=== PATIENT | female | born 1955 | race Caucasian/White ===

== ENCOUNTER → 2018-05-27 | Outpatient (CLI) | payer OTHER ==
[~2018-05-27] MED LIST: ALEVE220 MG PO; CELEXA20 MG PO; FOSAMAX 70 MG T70 MG PO; ROBAXIN 750 MG750 M1 PO; TOPROL XL25 MG PO
[2018-05-27 10:10] LABS: ALBUMIN 4.2 g/dL (3.4-5.0); ALKALINE PHOSPHATASE 61 U/L (46-116); CHOLESTEROL 218 mg/dL (<200); DIRECT BILIRUBIN 0.1 mg/dL (<0.1-0.3); HDL CHOLESTEROL 88 mg/dL (>40); LDL CHOLESTEROL 85 mg/dL (<100); SGOT 27 U/L (15-37); SGPT 20 U/L (30-65); TC:HDL 2.5 Ratio (Not establshd); TOTAL BILIRUBIN 0.5 mg/dL (<0.1-1.0); TOTAL PROTEIN 7.6 g/dL (6.4-8.2); TRIGLYCERIDE 226 mg/dL (<150); VLDL 45 mg/dL (<40)
[2018-05-27 10:17] LABS: SERUM ASSESSMENT Clear
== END ==
LOC: M.LAB 09:29
DX: E78.5 Hyperlipidemia, unspecified (principal); I10 Essential (primary) hypertension; M81.0 Age-related osteoporosis without current pathological fracture

== ENCOUNTER → 2019-03-11 | Outpatient (CLI) | payer OTHER | LOC: M.LAB 09:15 | DX: R19.7 Diarrhea, unspecified (principal) ==

== ENCOUNTER → 2019-03-12 | Outpatient (CLI) | payer OTHER | LOC: M.LAB 13:27 | DX: R19.7 Diarrhea, unspecified (principal) ==

== ENCOUNTER 2020-08-21 11:13 | Emergency (ER) | payer OTHER ==
[~2020-08-21] VITALS: Ht 147.3 cm; Wt 40.8 kg
[2020-08-21] MEDS ORDERED: LIPITOR 10 MG10 M1 PO (11:24)
[2020-08-21] MEDS ORDERED: PRINIVIL10 MG PO (11:24)
[2020-08-21] MEDS ORDERED: TOPAMAX100 MG PO (11:24)
[2020-08-21] MEDS ORDERED: MELATONIN5 MG SUBLING (11:25)
[2020-08-21 11:59] LABS: URINE BILIRUBIN NEGATIVE (Negative); URINE BLOOD NEGATIVE (Negative); URINE CLARITY CLEAR; URINE COLOR YELLOW; URINE GLUCOSE-RANDOM NEGATIVE (Negative); URINE KETONES TRACE (Negative); URINE LEUKOCYTES-REFLEX NEGATIVE (Negative); URINE NITRITE-REFLEX NEGATIVE (Negative); URINE PROTEIN NEGATIVE (Negative); URINE UROBILINOGEN 0.2 E.U./dl (0.2-1.0)
[2020-08-21 14:07] LABS: ABSOLUTE BASOPHILS 0.1 thou/uL (0.0-0.2); ABSOLUTE EOSINOPHILS 0.2 thou/uL (0.0-0.7); ABSOLUTE LYMPHOCYTES 2.5 thou/uL (0.8-5.3); ABSOLUTE NEUTROPHILS 6.1 thou/uL (1.6-8.1); BASOPHILS 0.8 %; EOSINOPHILS 2.1 %; HEMATOCRIT 42.6 % (37.0-47.0); HEMOGLOBIN 14.5 gm/dL (12.0-15.0); LYMPHOCYTES 25.1 %; MCH 35.6 pg (26.0-34.0); MCV 104.7 fL (80.0-100.0); MONOCYTES 9.9 %; MPV 7.2 fl. (7.2-11.1); NUCLEATED RBCS 0 /100WBC; PLATELET COUNT* 301 thou/uL (150-400); POLYS 62.1 %; RBC 4.07 mil/uL (4.20-5.00); RDW-CV 14.4 % (10.5-14.5); WBC 9.8 thou/uL (4.0-11.0)
[2020-08-21 14:13] LABS: CALCIUM 8.9 mg/dL (8.5-10.1); CREATININE 1.2 mg/dL (0.6-1.3)
[2020-08-21 14:17] LABS: ALBUMIN 4.4 g/dL (3.4-5.0); TOTAL BILIRUBIN 0.4 mg/dL (<0.1-1.0); TOTAL PROTEIN 8.2 g/dL (6.4-8.2)
[2020-08-21] MEDS ORDERED: ONDANSETRON ODT4 MG PO (16:27)
[2020-08-21] MEDS ORDERED: NORCO 5-325 TA1 EAC2 PO (16:27)
[2020-08-21 16:38] VITALS: BP 137/82
--- NOTE | 2020-08-23 16:32 | EKG ---
[place] [address] ELECTROCARDIOGRAM REPORT Name: RENE RUFF Room: [facility]#: [id number] Admission: 08/21/20 Attend Phys: Discharge: 08/21/20 Date of : 53 Date of Service: 08/21/20 1414 Report #: [id number] THIS REPORT FOR: //name// [facility] ED Test Date: 2020-08-21 Test Time: 14:14:52 Pat Name: RENE RUFF Department: Room: Gender: F Plan Coordinator: [facility] [place] : 1955 Requested By: Raymundo Maradiaga Order Number: [id number] MD: Dom Gates Measurements Intervals [place] Rate: 74 P: -4 [place]: 141 QRS: 28 QRSD: 77 T: 16 QT: 402 QTc: 446 Interpretive Statements Sinus rhythm Abnormal R-wave progression, early transition Borderline T abnormalities, anterior leads No previous ECG available for comparison Electronically Signed On 08-23-2020 16:32:20 TECHNICAL DATA ANALYST by Dom Gates [email or web address] <ELECTRONICALLY SIGNED> By: Dom Gates MD, [facility] 08/23/20 1632 1414 141 Dom Gates MD, [facility] /EPI
== END 2020-08-21 16:39 | disposition home or self-care (01) ==
LOC: M.ERS 11:13
PROVIDERS: Family Medicine; Physician Assistant
DX: R10.31 Right lower quadrant pain (principal); I10 Essential (primary) hypertension; F17.210 Nicotine dependence, cigarettes, uncomplicated; Z88.8 Allergy status to other drugs, medicaments and biological substances

== ENCOUNTER → 2020-11-06 | Emergency (ER) | payer OTHER ==
[~2020-11-06] VITALS: Ht 147.3 cm; Wt 39.9 kg
[~2020-11-06] MED LIST changes: +LIPITOR 10 MG10 M1 PO; +MELATONIN5 MG SUBLING; +NORCO 5-325 TA1 EAC2 PO; +ONDANSETRON ODT4 MG PO; +PRINIVIL10 MG PO; +TOPAMAX100 MG PO
[2020-11-06 14:20] VITALS: BP 125/65
== END ==
LOC: M.ERS 13:30
DX: S61.211A Laceration without foreign body of left index finger without damage to nail, initial encounter (principal); R20.2 Paresthesia of skin; I10 Essential (primary) hypertension; Z79.899 Other long term (current) drug therapy; Z88.8 Allergy status to other drugs, medicaments and biological substances; W26.0XXA Contact with knife, initial encounter; Y93.89 Activity, other specified; Y92.89 Other specified places as the place of occurrence of the external cause; Y99.8 Other external cause status

== ENCOUNTER 2021-03-02 20:17 | Inpatient (IN) | payer OTHER ==
[~2021-03-02] VITALS: Ht 147.3 cm; Wt 38.6 kg
[2021-03-02 20:24] VITALS: BP 178/80
[2021-03-02] MEDS ORDERED: VITAMIN D31 ML (20:30)
[2021-03-02] MEDS ORDERED: FIBER0.4 GM PO (20:30)
[2021-03-02 20:39] LABS: ABSOLUTE BASOPHILS 0.1 thou/uL (0.0-0.2); ABSOLUTE EOSINOPHILS 0.3 thou/uL (0.0-0.7); ABSOLUTE LYMPHOCYTES 3.8 thou/uL (0.8-5.3); ABSOLUTE MONOCYTES 0.9 thou/uL (0.0-1.2); ABSOLUTE NEUTROPHILS 5.5 thou/uL (1.6-8.1); BASOPHILS 1.2 %; EOSINOPHILS 3.1 %; HEMATOCRIT 41.9 % (37.0-47.0); HEMOGLOBIN 14.4 gm/dL (12.0-15.0); LYMPHOCYTES 35.6 %; MCH 36.2 pg (26.0-34.0); MCHC 34.3 g/dL (28.0-37.0); MCV 105.4 fL (80.0-100.0); MONOCYTES 8.3 %; MPV 7.6 fl. (7.2-11.1); NUCLEATED RBCS 0 /100WBC; PLATELET COUNT* 271 thou/uL (150-400); POLYS 51.8 %; RBC 3.97 mil/uL (4.20-5.00); RDW-CV 13.3 % (10.5-14.5); WBC 10.7 thou/uL (4.0-11.0)
[2021-03-02 20:49] LABS: CALCIUM 9.4 mg/dL (8.5-10.1); POTASSIUM 3.1 mmol/L (3.5-5.1)
[2021-03-02 20:53] LABS: ALBUMIN 4.5 g/dL (3.4-5.0); TOTAL BILIRUBIN 0.4 mg/dL (<0.1-1.0); TOTAL PROTEIN 8.1 g/dL (6.4-8.2)
[2021-03-02 23:42] LABS: URINE BILIRUBIN NEGATIVE (Negative); URINE BLOOD NEGATIVE (Negative); URINE CLARITY CLEAR; URINE COLOR YELLOW; URINE GLUCOSE-RANDOM NEGATIVE (Negative); URINE KETONES TRACE (Negative); URINE LEUKOCYTES-REFLEX NEGATIVE (Negative); URINE NITRITE-REFLEX NEGATIVE (Negative); URINE PROTEIN NEGATIVE (Negative); URINE UROBILINOGEN 0.2 E.U./dl (0.2-1.0)
[2021-03-02 23:52] VITALS: BP 155/107
[2021-03-03 03:00] VITALS: BP 123/71
[2021-03-03 04:56] LABS: HEMATOCRIT 40.4 % (37.0-47.0); HEMOGLOBIN 13.5 gm/dL (12.0-15.0); MCH 35.7 pg (26.0-34.0); MCHC 33.5 g/dL (28.0-37.0); MCV 106.7 fL (80.0-100.0); MPV 7.8 fl. (7.2-11.1); NUCLEATED RBCS 0 /100WBC; PLATELET COUNT* 211 thou/uL (150-400); RBC 3.78 mil/uL (4.20-5.00); WBC 12.5 thou/uL (4.0-11.0)
[2021-03-03 05:05] LABS: CREATININE 0.7 mg/dL (0.6-1.3); POTASSIUM 3.8 mmol/L (3.5-5.1)
[2021-03-03 05:51] LABS: ABSOLUTE LYMPHOCYTES 0.5 thou/uL (0.8-5.3); ABSOLUTE MONOCYTES 0.4 thou/uL (0.0-1.2); ABSOLUTE NEUTROPHILS 11.6 thou/uL (1.6-8.1); PLATELET ESTIMATE ADEQUATE
[2021-03-03 05:52] LABS: ANISOCYTOSIS 1+; POIKILOCYTOSIS 1+
[2021-03-03 08:05] VITALS: BP 131/74
--- NOTE | 2021-03-03 09:40 | EKG ---
[place] [address] ELECTROCARDIOGRAM REPORT Name: RENE RUFF Room: [address] ADM IN [facility].#: [id number] Admission: 03/02/21 Attend Phys: Will Reno Discharge: Date of : 53 Date of Service: 03/02/212025 Report #: [id number] THIS REPORT FOR: //name// [facility] ED Test Date: 2021-03-02 Test Time: 20:26:24 Pat Name: RENE RUFF Department: Room: [facility] Gender: F Nursery Attendant: [place] : 1955 Requested By: Rema Oleary Order Number: [id number] MD: Abdias Archer Measurements Intervals [place] Rate: 64 P: 50 [place]: 147 QRS: 22 QRSD: 102 T: 37 QT: 425 QTc: 439 Interpretive Statements Sinus rhythm Probable left atrial enlargement Baseline wander in lead(s) II Compared to ECG 08/21/2020 14:14:52 T-wave abnormality no longer present Electronically Signed On 03-03-2021 9:39:49 CDT by Abdias Archer [email or web address] <ELECTRONICALLY SIGNED> By: Abdias Archer MD, FAC 03/03/2139 25 25 Abdias Archer MD, FAC /EPI
[2021-03-03 12:00] VITALS: BP 120/65
[2021-03-03 16:00] VITALS: BP 121/67
[2021-03-03 20:00] VITALS: BP 154/86
[2021-03-04 04:05] VITALS: BP 146/94
[2021-03-04 07:40] VITALS: BP 151/89
[2021-03-04 08:00] LABS: ABSOLUTE EOSINOPHILS 0.2 thou/uL (0.0-0.7); ABSOLUTE LYMPHOCYTES 0.9 thou/uL (0.8-5.3); ABSOLUTE MONOCYTES 0.4 thou/uL (0.0-1.2); ABSOLUTE NEUTROPHILS 7.8 thou/uL (1.6-8.1); BASOPHILS 0.3 %; EOSINOPHILS 2.4 %; HEMATOCRIT 33.3 % (37.0-47.0); LYMPHOCYTES 9.9 %; MCH 36.1 pg (26.0-34.0); MCHC 34.3 g/dL (28.0-37.0); MCV 105.4 fL (80.0-100.0); MONOCYTES 4.3 %; MPV 7.9 fl. (7.2-11.1); NUCLEATED RBCS 0 /100WBC; PLATELET COUNT* 180 thou/uL (150-400); POLYS 83.1 %; RBC 3.16 mil/uL (4.20-5.00); RDW-CV 13.1 % (10.5-14.5); WBC 9.4 thou/uL (4.0-11.0)
[2021-03-04 08:02] LABS: HEMOGLOBIN 11.4 gm/dL (12.0-15.0)
[2021-03-04 08:20] LABS: CREATININE 0.7 mg/dL (0.6-1.3); POTASSIUM 3.4 mmol/L (3.5-5.1)
[2021-03-04 08:25] LABS: MAGNESIUM 2.1 mg/dL (1.8-2.4); PHOSPHORUS* 2.1 mg/dL (2.5-4.9); TOTAL BILIRUBIN 0.4 mg/dL (<0.1-1.0); TOTAL PROTEIN 6.2 g/dL (6.4-8.2)
--- NOTE | 2021-03-04 15:24 | OP ---
[address] [address] OPERATIVE REPORT Name: RENE RUFF Room: [address] IN .R.#: [id number] Admission: 03/02/21 Attend Phys: Eduard Silveira Discharge: Date of : 53 Report #: [id number] THIS REPORT FOR: cc: Swapna Mccall MD, Lori C. MD Gazzetta, Joshua D. DO ~ DOC #: [id number] Dictated by Abilio Park DO DATE OF SURGERY: 03/02/2021 PREOPERATIVE DIAGNOSIS: Cecal volvulus. POSTOPERATIVE DIAGNOSES: Cecal volvulus, intra-abdominal adhesions and Meckel's diverticulum. SURGEON: Will Reno DO. CO-SURGEON: Abilio Park, PGY5. CATERING ATTENDANT: MS Maggie3. OPERATION PERFORMED: 1. Exploratory laparotomy. 2. ileocecectomy with stapled ileocolonic anastomosis. 3. Lysis of adhesions. 4. Meckel's diverticulectomy. ANESTHESIA: General. ESTIMATED BLOOD LOSS: 20 mL. SPECIMEN: Terminal ileum with Meckel's diverticulum and right colon. COMPLICATIONS: None. INDICATIONS: The patient is a 65-year-old female who presented to the Emergency Department with complaints of acute onset abdominal pain. She was found on CT imaging to have findings of an acute cecal volvulus. She was informed of the risks and benefits of exploratory laparotomy with detorsion of her cecum and a bowel resection with risks including but not limited to bleeding, infection, injury to intraabdominal structures and anastomotic leak. She understood these risks and decided to proceed with surgery. TECHNIQUE: After informed consent was obtained, the patient was brought to the operating room and placed in supine position. SCDs were on and running. Preoperative Zosyn was given. Villarreal was placed under sterile technique after [address] [place] [address] OPERATIVE REPORT Name: RENE RUFF Room: [address]#: [id number] Admission: 03/02/21 Attend Phys: Eduard Silveira Discharge: Date of : 53 Report #: [id number] anesthesia was induced. General anesthesia was then induced with an ET tube. The patient was prepped and draped in the usual sterile fashion. A surgical pause was held to confirm proper patient and procedure. A midline laparotomy incision was made with a 10 blade. Dissection was carried through the subcutaneous fat using cautery until the fascia was identified. Fascia was scored using cautery. The fascia was opened for the entire length of the incision. The peritoneum was bluntly entered and this was also opened using cautery for the entire length of the incision. The distended colon immediately delivered itself from the incision. The colon was detorsed. There were two small adhesive bands that were tethering the volvulus. These were lysed with cautery and with the LigaSure Impact device. This allowed for free mobility of the terminal ileum and right colon and allowed complete detorsion. There were some evidence of hematoma and injury to the portion of the right colon that was twisted. At this point, the small bowel was run from the ligament of Treitz to the terminal ileum. Just proximal to the terminal ileum, a Meckel's diverticulum was noted, this was included in the specimen. A window was made through the mesentery using a Junie. A 75 mm JERE blue load stapler was fired across the terminal ileum proximal to the Meckel's diverticulum. The mesentery was taken down using the LigaSure Impact device. The lateral attachments of the right colon were taken down by elevating the white line of Toldt with a right angle and incising using cautery, the duodenum was bluntly swept away from the colon as the hepatic flexure was mobilized and taken down. Once there was adequate mobilization of the hepatic flexure for the anastomosis, the distal transection point was selected. A window was created using a Junie and an additional load of the 75 mm JERE was fired across the colon. The distal transection point was just proximal to the right colic artery. The remaining mesocolon was taken down using the LigaSure Impact device. The specimen including the terminal ileum, the Meckel's diverticulum, the cecum, the appendix and the descending colon was handed off as specimen. There was an additional specimen of some mucin or a peritoneal cyst that had formed in the abdomen, this was handed off separately for permanent. At this point, we prepared for an ileocolonic stapled anastomosis. The corners of the staple lines were excised using heavy curved Wallace scissors. A 75 mm blue load JERE stapler was placed into the terminal ileum limb and into the descending colon limb . These were aligned with the tinea to the antimesenteric border of the small bowel and the stapler was fired. The common enterotomy was grasped using a sequence of Allis clamps and a TA 60 blue load was fired across the common enterotomy. The common enterotomy TA staple line was oversewn with interrupted Lembert sutures using 3-0 silk pop-offs. A portion of the mesenteric defect [place] [address] OPERATIVE REPORT Name: RENE RUFF Room: [address] IN [facility]#: [id number] Admission: 03/02/21 Attend Phys: Eduard Silveira Discharge: Date of : 53 Report #: [id number] 2-0 Vicryl; however, most of the mesenteric defect was left open and this was wide enough that should something pass through it would easily reduce. A crotch suture was placed at the anastomosis using 2-0 silk. The anastomosis was returned into the abdomen. The abdomen was thoroughly suctioned. The small bowel were in their normal anatomical position. The omentum was draped over the abdomen. The fascia was then closed in a running continuous manner with #1 PDS from the top and the bottom and these were closed by tying them together in the middle. The wound was then closed in layered fashion using 3-0 Vicryl and 4-0 Monocryl. Wound was cleansed and dressed with a silver impregnated Mepilex. The patient was emerged from anesthesia and transferred to the PACU in stable condition. All counts were reported as correct. Abilio Park DO CH/DAVID <ELECTRONICALLY SIGNED> By: Will Reno DO 03/04/21 1524 0107 [id number] Reno DO /jacob
[2021-03-04 16:41] VITALS: BP 144/92
[2021-03-04 20:00] VITALS: BP 149/91
[2021-03-05 08:05] VITALS: BP 118/83
[2021-03-05 10:16] LABS: ABSOLUTE BASOPHILS 0.1 thou/uL (0.0-0.2); ABSOLUTE EOSINOPHILS 0.3 thou/uL (0.0-0.7); ABSOLUTE LYMPHOCYTES 0.9 thou/uL (0.8-5.3); ABSOLUTE MONOCYTES 0.5 thou/uL (0.0-1.2); ABSOLUTE NEUTROPHILS 7.7 thou/uL (1.6-8.1); BASOPHILS 0.7 %; EOSINOPHILS 2.8 %; HEMATOCRIT 36.9 % (37.0-47.0); HEMOGLOBIN 12.8 gm/dL (12.0-15.0); LYMPHOCYTES 9.9 %; MCH 36.5 pg (26.0-34.0); MCHC 34.7 g/dL (28.0-37.0); MCV 105.2 fL (80.0-100.0); MONOCYTES 5.3 %; NUCLEATED RBCS 0 /100WBC; PLATELET COUNT* 209 thou/uL (150-400); POLYS 81.3 %; RBC 3.51 mil/uL (4.20-5.00); WBC 9.4 thou/uL (4.0-11.0)
[2021-03-05 10:25] LABS: ALBUMIN 2.9 g/dL (3.4-5.0); CALCIUM 7.8 mg/dL (8.5-10.1); CREATININE 0.7 mg/dL (0.6-1.3); MAGNESIUM 2.1 mg/dL (1.8-2.4); PHOSPHORUS* 2.8 mg/dL (2.5-4.9); POTASSIUM 3.3 mmol/L (3.5-5.1); TOTAL BILIRUBIN 0.4 mg/dL (<0.1-1.0); TOTAL PROTEIN 6.3 g/dL (6.4-8.2)
[2021-03-05 16:00] VITALS: BP 146/90
[2021-03-05 20:00] VITALS: BP 147/83
[2021-03-06 04:46] LABS: ABSOLUTE EOSINOPHILS 0.3 thou/uL (0.0-0.7); ABSOLUTE MONOCYTES 0.5 thou/uL (0.0-1.2); ABSOLUTE NEUTROPHILS 4.5 thou/uL (1.6-8.1); BASOPHILS 0.7 %; EOSINOPHILS 5.2 %; HEMATOCRIT 34.3 % (37.0-47.0); HEMOGLOBIN 11.7 gm/dL (12.0-15.0); LYMPHOCYTES 15.9 %; MCH 35.8 pg (26.0-34.0); MCHC 34.1 g/dL (28.0-37.0); MCV 105.2 fL (80.0-100.0); MONOCYTES 8.4 %; MPV 8.2 fl. (7.2-11.1); NUCLEATED RBCS 0 /100WBC; PLATELET COUNT* 211 thou/uL (150-400); POLYS 69.8 %; RBC 3.26 mil/uL (4.20-5.00); RDW-CV 12.7 % (10.5-14.5); WBC 6.4 thou/uL (4.0-11.0)
[2021-03-06 05:08] LABS: ALBUMIN 2.7 g/dL (3.4-5.0); CALCIUM 7.8 mg/dL (8.5-10.1); CREATININE 0.6 mg/dL (0.6-1.3); PHOSPHORUS* 3.1 mg/dL (2.5-4.9); POTASSIUM 3.5 mmol/L (3.5-5.1); TOTAL BILIRUBIN 0.3 mg/dL (<0.1-1.0); TOTAL PROTEIN 6.2 g/dL (6.4-8.2)
[2021-03-06 10:41] VITALS: BP 159/101
[2021-03-06 16:01] VITALS: BP 168/88
[2021-03-06 20:00] VITALS: BP 152/85
[2021-03-07 07:25] VITALS: BP 126/98
[2021-03-07] MEDS ORDERED: OXYCODONE HCL 55 MG PO (07:45)
[2021-03-07 09:47] VITALS: BP 126/98
--- NOTE | 2021-03-07 11:07 | PATH ---
[address] [address] PATHOLOGY RPT PROCEDURE Name: RENE RUFF Room: [address] IN M.R.#: [id number] Admission: 03/02/21 Date of : 53 Discharge: 03/07/21 Report #: [id number] Path Case #: [id number] [facility] Accession Number: [id number] . 01 Material submitted: . PART A: peritoneum - PERITONEAL CYST PART B: cecum - TERMINAL ILEUM, CECUM . 01 Clinical history: . CECAL VOLVULUS . 02 Diagnosis: A. Peritoneal cyst: - Acutely inflamed, benign fibrofatty tissue. . B. Terminal ileum, cecum: - Segment of benign ileum, cecum and attached appendix with prominent small bowel diverticulum and evidence of volvulus including colonic luminal dilatation, mucosal hemorrhage and acute serositis. - One benign pericolic lymph node. . (MYLENE:fredy; 03/04/2021) [facility] 03/04/2021 1705 Local . 02 Electronically signed: . Jamey Whelan MD, Pathologist NPI- [id number] . 01 Gross description: . A. The specimen is received in formalin, labeled "Rene Ruff, peritoneal cyst". Received is a segment of pink-candelario tissue measuring 1.5 x 0.8 x 0.2 cm in greatest dimensions. The specimen is bisected and entirely submitted in cassette A1. . B. The specimen is received in formalin, labeled "Rene Ruff, terminal ileum, cecum". Received is a right hemicolectomy specimen consisting of an extended segment of small bowel measuring 27.2 cm in length and ranging in diameter from 2.0 to 4.0 cm contiguous with a segment of cecum measuring 14.8 cm in length and ranging in diameter from 2.4 to 8.0 cm. Both margins are stapled closed. The serosal surface of the small bowel is pink-candelario and glistening in appearance. The serosal surface of the cecum is pink-candelario and glistening in appearance. The attached pericolic fat measures up to 1.2 cm in thickness. The specimen is opened along the antimesenteric line to reveal light arthur mucosa within the small bowel with normal architectural folds. There is an outpouched area located 3.4 cm from the proximal margin, indicative of large diverticulum, measuring 3.2 x 2.4 x 2.4 cm. The ileocecal valve is pink-arthur and grossly unremarkable. The colonic mucosa is pink-arthur to pink-[place] [address] PATHOLOGY RPT PROCEDURE Name: RENE RUFF Room: [address] IN M.R.#: [id number] Admission: 03/02/21 Date of : 53 Discharge: 03/07/21 Report #: [id number] Path Case #: [id number] folding. No distinct nodules or lesions are noted grossly. The appendix is present measuring 3.7 cm in length by 0.6 cm in diameter, and appears grossly unremarkable. Dissection and palpation of the attached pericolic fat reveals a single readily identifiable lymph node measuring 0.5 cm in maximum dimensions. The specimen is submitted representatively as follows: . B1 proximal margin, en face B2 distal margin, en face B3 territory representative sections of small bowel diverticulum B4 small bowel mucosa B5 ileocecal valve B6 colonic mucosa B7 territory representative sections of appendix, to include proximal margin and bisected tip B8 intact lymph node. (CAA; 03/03/2021) QAC/QAC 03/04/2021 1700 Local . 02 Pathologist provided ICD-10: K65.9, K65.8 . 02 CPT . 742173, 305590 Specimen Comment: A courtesy copy of this report has been sent to [phone] Specimen Comment: Report sent to [facility]formed at: [facility] [address], [place], [place] [id number] MD Delmar Quintanilla MD Phone: [phone] Performed at: [facility] [address], [place], [place] [id number] MD Jamey Whelan MD Phone: [phone]
== END 2021-03-07 10:57 | disposition home or self-care (01) | DRG 331 ==
LOC: M.ERS 20:17 → M.TBA-ER 21:46 → M.ORTHSURG 21:46
PROVIDERS: Emergency Medicine; Surgery; ADMIT Surgery; ATTEND Surgery
PROC: 0DBH0ZZ Excision of Cecum, Open Approach (ICD-10-PCS; principal; 2021-03-02)
PROC: 0DBM0ZZ Excision of Descending Colon, Open Approach (ICD-10-PCS; principal; 2021-03-02)
PROC: 0DTJ0ZZ Resection of Appendix, Open Approach (ICD-10-PCS; principal; 2021-03-02)
PROC: 0DBW0ZZ Excision of Peritoneum, Open Approach (ICD-10-PCS; principal; 2021-03-02)
DX: K56.2 Volvulus (principal); Q43.0 Meckel's diverticulum (displaced) (hypertrophic); K66.0 Peritoneal adhesions (postprocedural) (postinfection); I10 Essential (primary) hypertension; M81.0 Age-related osteoporosis without current pathological fracture; K66.8 Other specified disorders of peritoneum; E05.00 Thyrotoxicosis with diffuse goiter without thyrotoxic crisis or storm; F17.210 Nicotine dependence, cigarettes, uncomplicated; G43.909 Migraine, unspecified, not intractable, without status migrainosus; E78.5 Hyperlipidemia, unspecified; Z20.822 Contact with and (suspected) exposure to COVID-19; Z79.899 Other long term (current) drug therapy; Z88.8 Allergy status to other drugs, medicaments and biological substances